=== PATIENT | female | born 2000 | race Caucasian/White ===

== ENCOUNTER 2022-06-30 06:24 | Emergency (ER) | payer OTHER ==
[2022-06-30] MEDS ORDERED: Ondansetron PF 4 MG/2 ML Vial ONE (07:34)
[2022-06-30 08:46] LABS: #Basophils 0.1 thou/uL (0.0-0.2); #Eosinphils 0.1 thou/uL (0.0-0.7); #Lymphocytes 1.9 thou/uL (1.20-3.40); #Monocytes 0.8 thou/uL (0.11-0.59); %Basophils 0.5 % (0.0-1.0); %Eosinophils 0.4 % (0.0-10.0); %Monocytes 6.2 % (0.0-10.0); %Neutrophils 77.9 % (42.0-75.0); Mean Corpuscular HGB CONC 33.5 g/dL (32.0-36.0); Mean Corpuscular Hemoglobin 30.9 pg (27.0-31.0); Mean Corpuscular Volume 92.1 fL (78.0-98.0); Platelet Count 259 thou/uL (130-400); RBC Distribution Width 11.9 % (11.5-14.5); White Blood Cell (WBC) Count 12.9 thou/uL (4.8-10.8)
[2022-06-30 09:04] LABS: Albumin 4.2 g/dL (3.5-5.0)
[2022-06-30 09:06] LABS: Calcium 9.4 mg/dL (7.8-10.44); Chloride 103 mmol/L (98-107); Sodium 133 mmol/L (136-145)
[2022-06-30 09:07] LABS: Globulin 3.1 g/dL (2.4-3.5); Glucose 103 mg/dL (70-105); Protein, Total 7.3 g/dL (6.0-8.3)
[2022-06-30 09:08] LABS: Anion Gap 15 mmol/L (10-20); Carbon Dioxide 19 mmol/L (22-29)
[2022-06-30 09:09] LABS: Bilirubin, Total 0.4 mg/dL (0.2-1.2)
[2022-06-30 09:10] LABS: Alkaline Phosphatase 59 U/L (40-110); Calc. Creatinine Clearance 0 mL/min (70-130); Estimated GFR 96
[2022-06-30 09:14] LABS: BUN (Urea Nitrogen) 9 mg/dL (7.0-18.7)
[2022-06-30 09:15] LABS: ALT (SGPT) 8 U/L (8-55); AST (SGOT) 12 U/L (5-34)
[2022-06-30 09:17] LABS: BHCG - Serum Negative (NEGATIVE); Pregs Control Background? CLEAR/WHITE (CLR/WHITE); Pregs Control Bar Appear? YES (CONTROL BAR)
[2022-06-30 09:55] LABS: Lipase 7 U/L (8-78)
== END 2022-06-30 09:27 | disposition home or self-care (01) ==
LOC: ERS 06:24
DX: R11.2 Nausea with vomiting, unspecified (principal); T36.8X5A Adverse effect of other systemic antibiotics, initial encounter; I95.9 Hypotension, unspecified
CPT/HCPCS: 36415; 71045; 80053; 83690; 84484; 84703; 85025; 85379; 93005; 96361; 96374; J2405